=== PATIENT | male | born 1990 | race Caucasian/White ===

== ENCOUNTER 2020-01-27 09:21 | Emergency (ER) | payer OTHER, SELFPAY ==
[2020-01-27 09:22] VITALS: BP 126/54; PULSE 83; RESP 28; TEMP 37.2; O2SAT 99; BMI 28.0
--- NOTE | 2020-01-27 09:37 | CT_ITS ---
STUDY: CT BRAIN WITHOUT CONTRAST REASON FOR EXAM: Male, 29 years old. FRONTAL MURRAY, DIAPHORETIC, N/T RADIATION DOSAGE (If Supplied By Facility): CTDIvol = ( 44.99 ) mGy, DLP = ( 745.49 ) mGycm TECHNIQUE: Transaxial CT imaging of the brain was performed without administration of intravenous contrast material. Individualized dose optimization techniques were used for this CT. COMPARISON: No relevant priors. FINDINGS: Normal soft tissue structures. Normal calvarium. Normal size ventricles and extra-axial spaces for the patient''s age. Normal white matter tracts of the cerebral hemispheres. Normal basal ganglia and thalami. Normal brainstem. Normal cerebellum. There is no intracranial hemorrhage. There are no findings of an acute ischemic infarction. Normal visualized paranasal sinuses. CT/Brain/Head without Contrast IMPRESSION: Normal unenhanced CT scan of the brain. Electronically Signed: Anil Hunter, at 11:01 EDT , Service support ,
[2020-01-27] MEDS: DiphenhydrAMINE 50 MG/ML Syringe 25 MG IV (10:01)
[2020-01-27] MEDS: proCHLORPERazine 10 MG/2 ML Vial IV (10:01)
[2020-01-27] MEDS: 0.9% Normal Saline 1,000 ML 999 ML IV (10:01)
[2020-01-27 10:06] LABS: Anion Gap 10 (5-15); BUN 16 mg/dL (7-18); BUN/Creat Ratio 14.2 RATIO (10-20); Calcium,Total 8.9 mg/dL (8.5-10.1); Chloride 108 mmol/L (98-107); Creatinine, Serum 1.13 mg/dL (0.70-1.30); EST Glomerular Filtration Rate 83 mL/min (>60); Est Glom Filt Rate - Afr Amer 100 mL/min (>60); Estimated Creatinine Clearance 98.19 ml/min; Glucose 171 mg/dL (74-106); Potassium 3.5 mmol/L (3.5-5.1); Sodium Level 141 mmol/L (136-145)
--- NOTE | 2020-01-27 10:16 | ED.VIS.GEN ---
History of Present Illness Chief Complaint: Headache Narrative: 29-year-old male presents with a frontal headache and tingling in his fingers and toes. He denies recent illness. He felt completely normal upon awakening today. He worked out at home doing his usual workout, nothing unusual that he can recall. He did not take any exercise supplements and denies any recent dietary changes. He felt fine afterwards. He was then at work outside but not doing anything strenuous when he began developing a right-sided headache essentially on his right forehead. He had transient pain behind his right eye for a few seconds but never had visual changes. The pain then progressed to essentially be bifrontal on the forehead only. Nothing posteriorly. No neck pain. No sinus congestion or other upper respiratory complaints. The pain became fairly severe and he began feeling somewhat hot and had the sensation that he needed to vomit. He decided to leave work. While driving home he felt as if he was going to vomit throughout most of the time and felt flushed. When he pulled on his driveway he did vomit 1 time, mostly liquid. He never had any abdominal pain. The headache then essentially resolved but then returned upon his way to the hospital when he also noticed that his fingertips and toes felt tingly. He could still move them without trouble and did not have any weakness or true numbness, just felt tingly. He denies ever having similar symptoms in the past. He does not have a history of migraines but states that he does on occasion developed fairly significant headaches. The headache is now only approximately 2 out of 10. No eye pain or visual complaints. No weakness anywhere. His diet has been consistent for the past week and he denies any recent falls or head trauma. He does also note that he was hyperventilating secondary to the pain but did not have cough or shortness of breath. Denies recent sick contacts. He cannot recall any specific triggers for this. Light does not make it worse. Prior similar symptoms: No Recent Illness/Hospitalization: No Capacity - Capacity Assessment Tool Can the patient make a choice & communicate that choice?: Yes Past Medical History - Allergies and Home Meds Allergies/Adverse Reactions: Allergies Penicillins Allergy (Verified 01/27/20 09:25) Shortness of breath Primary Care Physician: Nohemy Bender MD [Primary Care Provider] - Prior records reviewed: Yes Past Medical History: - - Seasonal allergies Smoking Status: Never smoker Review of Systems General: Reports: Sweats. Denies: Chills, Fever Eyes: Denies: Visual changes - bilaterally, Diplopia ENT: Denies: Rhinorrhea, Sore throat Cardiovascular: Denies: Chest pain, Palpitations Respiratory: Denies: Dyspnea, Cough, Dyspnea on exertion Gastrointestinal: Reports: Nausea, Vomiting. Denies: Abdominal pain, Diarrhea, Melena, Hematochezia Genitourinary: Denies: Dysuria, Hematuria, Frequency Musculoskeletal: Denies: Back pain, Extremity Pain Skin: Denies: Rash, Wounds Neurological: Reports: Headache, Parasthesia. Denies: Weakness, Numbness Psych: Denies: Depression, Anxiety Hematologic: Denies: Easy bruising, Easy bleeding Physical Exam Vital Signs/Narrative: Vital Signs Temp Pulse Resp BP Pulse Ox 01/27/20 09:22 98.9 F 83 28 H 126/54 H 99 General: Well nourished, Well developed, No Acute Distress Head: Normocephalic, Atraumatic Eyes: Perrl, EOMI ENT: Moist mucous membranes, No rhinorrhea Neck: Supple, Nontender Cardiovascular: Regular rate, Regular rhythm, No murmurs Respiratory: No distress, CTA bilaterally, Chest nontender Abdomen: Soft, Nontender, Nondistended, Normal bowel sounds Back: Nontender, Normal Inspection Extremities: Nontender, No edema Skin: Normal color, No rash Neurological: Alert, Oriented x3, Cranial nerves II-XII grossly intact, Normal Strength, Normal Sensation Psychological: Normal affect, Normal Mood Diagnostic/Tx/Re-eval - Medical Decision Making Given IV fluids, antiemetics, and Benadryl. He was observed. His headache completely resolved. Completely normal neurologic exam. The tingling in his fingers resolved as well. He feels back to baseline. Eating and drinking without difficulty. Negative noncontrast head CT within only a few hours of symptom onset and negative CTA head and neck so I think the likelihood of a significant neurologic issue is quite low. He looks well and is comfortable going home with close follow-up. They will return here if he has recurrence of symptoms. BMP unremarkable except for slightly elevated glucose which I informed him about. ED Disposition - Plan for ED Patient: Disposition: Home or Assisted Living Diagnosis: Headache, Paresthesia, Vomiting Instructions: ED Headache Unspecified Referrals: Nohemy Bender MD [Primary Care Provider] -
--- NOTE | 2020-01-27 11:44 | CT_ITS ---
STUDY: CTA HEAD AND NECK WITH CONTRAST REASON FOR EXAM: Male, 29 years old. ACUTE NEUROLOGIC DEFICIT, FRONTAL HEADACHE, DIAPHORETIC, N/T HANDS AND FEET RADIATION DOSAGE (If Supplied By Facility): CTDIvol = ( 20.23 ) mGy, DLP = ( 792.74 ) mGycm TECHNIQUE: CT angiography was performed with a multi-detector CT scanner. Data acquisition was obtained from the skull base through the vertex following intravenous administration of IV 100mL [id number]-[id number]. MIP images were reconstructed from the axial data set. Post-processing of the angiographic images was performed, with multiplanar reformation and 3D reconstruction. Individualized dose optimization techniques were used for this CT. COMPARISON: No relevant priors. FINDINGS: Normal bilateral petrous carotid arteries. Normal right cavernous carotid artery with a normal supraclinoid bifurcation. Normal left cavernous carotid artery with a normal supraclinoid bifurcation. Normal right A1 segments of the anterior cerebral artery. Normal left A1 segments of the anterior cerebral artery. Normal intact anterior communicating artery (ACOM). Normal bilateral A2 segments of the anterior cerebral arteries. Normal right M1 and M2 segments of the middle cerebral arteries, with a normal M1 bifurcation. Normal left M1 and M2 segments of the middle cerebral arteries, with a normal M1 bifurcation. Normal right posterior communicating artery (PCOM). Normal left posterior communicating artery (PCOM). Normal bilateral vertebral arteries. Normal basilar artery with a normal basilar bifurcation. The visualized bilateral superior cerebellar (SCA) arteries are normal. Normal bilateral P1, P2 and visualized P3 segments of the posterior cerebral arteries. There is no demonstrated aneurysm of the rosebud of [place]. There is no demonstrated abnormality of the visualized brain. AORTIC ARCH: Normal visualized aortic arch. Normal origins of the brachiocephalic, left common carotid, and left subclavian arteries. RIGHT CAROTID ARTERIES: Normal right common carotid artery (CCA). Normal right common carotid bulb. Normal origin of the right internal carotid (ICA) artery without a hemodynamically significant stenosis. Normal visualized cervical portion of the right internal carotid artery. Normal origin of the right external carotid artery (ECA). LEFT CAROTID ARTERIES: Normal left common carotid artery (CCA). Normal left common carotid bulb. Normal origin of the left internal carotid (ICA) artery without a hemodynamically significant stenosis. Normal visualized cervical portion of the left internal carotid artery. Normal origin of the left external carotid artery (ECA). VERTEBRAL ARTERIES: Normal bilateral vertebral arteries. CT/CTA Head AND Neck W/ Contrast IMPRESSION: Normal CTA Head and neck with contrast. Electronically Signed: Anil Hunter, at 12:11 EDT , Service support ,
[2020-01-27] MEDS: Contrast Allergy Safety Check IV (12:37)
[2020-01-27 12:41] VITALS: PULSE 75; RESP 17; O2SAT 98
== END 2020-01-27 12:43 | disposition home or self-care (01) ==
PROVIDERS: Emergency Provider Emergency Medicine; PCP Family Medicine
DX: R51 Headache (principal); R11.10 Vomiting, unspecified; R20.2 Paresthesia of skin
CPT/HCPCS: 70450; 70496; 70498; 80048; 96361; 96374; 96375; 99283; J7030; Q9967; A4216

== ENCOUNTER → 2020-06-14 16:30 | Outpatient (CLI) | payer OTHER, SELFPAY | PROVIDERS: PCP Family Medicine; Visit Provider Family Medicine | DX: U07.1 COVID-19 (principal) | CPT/HCPCS: 87635; U0003 ==

== ENCOUNTER 2024-12-22 17:00 | Outpatient (RCR) | payer BC, SELFPAY ==
--- NOTE | 2024-12-02 19:01 | HP.PTEVAL ---
Patient's Visit Information Visit Information Visit Information: TRAV WYNN is a 34 year old M referred to Physical Therapy by Dr. Heriberto Orozco MD with a diagnosis of STRAIN OF MUSCLE FASCIA AND TENDON OF LOWER ,BACK INTIAL. Date of Evaluation: 12/02/24 Physical Therapist: Jatin Lino, PT, Cert MDT, OCS Visit Plan Frequency: 2x /Week Duration: 4 Weeks Plan: PT INTERVENTIONS DIMITRIS EX'S PROGRESSION OF FORCES ,DLS ,POSTURAL EX'S ,PATIENT EDUCATION CROSSFIT BACK CARE AND FLEXABILITY Subjective Subjective: This 34 y/o male presents to physical therapy with lumbar pain. Patient has had pain 8 weeks .[facility]Patient next day tightness. Patient location Right LS back . Seen DR x-rays - [facility] no medication recommend PT. Patient aggravating weight squat,extended driving KB swings and does crossfit. Alleviating moving ,walking ,standing using weight belt with pressure significantly less. Pain c/o more less of stiffness. No pain running ,jumping. Denies paresthesia/tingling-. Bowel/bladder-.Seen chiropractor no change and tried massage. Patient sleeping okay. Coughing/sneezing Patient condition affects QOL and function/crossfit. Patient no pain with crossfit SOCIAL: VOCATION: [employer] Pain Right Back: Pain Intensity (Out of 10): 3 Pain Intensity Range: 10 Objective Objective: POSTURE: mild forward posture GAIT: ambulated with reciprocal pattern NEURO: denies paresthesia/tingling ,reflexes L3-4 ,L4-5,L5-S1 1/3 PALPATION: tender LS FLEXABILITY: hamstrings min tight ,quads min tight LUMBAR ROM: min loss ,extension WFL ,side glide min loss MMT: quads/hams 5/5 ,hip flexion left 4-/5 ,right 5/5 ankle Special Tests L/S Slump test left side: Negative L/S Slump test right side: Negative L/S Left Straight Leg Raise: Negative L/S Right Straight Leg Raise: Negative Lumbar Standing: Flexion - Mechanical Response: No effect Lumbar Standing: Flexion - Symptoms During Testing: Increases Lumbar Standing: Flexion - Symptoms After Testing: No worse Lumbar Standing: Extension - Mechanical Response: No effect Lumbar Standing: Extension - Symptoms During Testing: Increases Lumbar Standing: Extension - Symptoms After Testing: No effect Lumbar Standing: Right Side Glides - Mechanical Response: No effect Lumbar Standing: Right Side [place] - Symptoms During Testing: No effect Lumbar Standing: Right Side [place] - Symptoms After Testing: No effect Lumbar Standing: Left Side [place] - Mechanical Response: No effect Lumbar Standing: Left Side [place] - Symptoms During Testing: No effect Lumbar Standing: Left Side [place] - Symptoms After Testing: No effect Lumbar Lying: Flexion - Mechanical Response: No effect Lumbar Lying: Flexion - Symptoms During Testing: Increases Lumbar Lying: Extension - Mechanical Response: No effect Lumbar Lying: Extension - Symptoms During Testing: Increases Lumbar Lying: Extension - Symptoms After Testing: No better Comments:: REIL with hips to left : 2x10 decreased symptoms Balance/Special Test Scores Oswestry Low Back Score: 16 Goals Goal 1:: Patient to be I with HEP Goal Time Frame: 4-6 Weeks Goal 2:: Patient posture/body mechanics 90% Goal Time Frame: 4-6 Weeks Goal 3:: Patient to improve lumbar ROM for function of recovery for lifting Goal Time Frame: 4-6 Weeks Goal 4:: Patient to back oswestry score by 5 points to improve QOL and function., Goal Time Frame: 4-6 Weeks Goal 5:: Patient to perform Crossfit w/o pain Goal Time Frame: 4-6 Weeks Rehabilitation Potential Physical Therapy Diagnosis: This patient has right lumbar possible disc possible lateral derangement with pain with certain activities lifting squatting and lifting thus benefit from skilled PT. Rehabilitation Potential: Good Anticipated Interventions TENS: Yes IF ES: Yes Cryotherapy (ice pack, ice massage): Yes Thermo therapy (hot pack): Yes Ultrasound (thermal/non thermal): Yes For the Purpose of:: To decrease pain, To increase ROM, To improve nutrient delivery to tissue, To increase oxygenation perfusion, To improve health of tissue, To decrease soft tissue restriction and To increase flexibility/ROM Text: Thank you for the opportunity to evaluate your patient. For Medicare and Medicare HMO plans, please review the plan of care and approve it. It will need to be FAXED BACK to us at [phone] for Medicare purposes. For Medicare only, by signing this I certify the plan of care. Please let me know if there are questions or concerns regarding this plan of care. Physician Signature: Date:
--- NOTE | 2025-04-18 17:22 | HP.PT.NRP ---
Patient Information Patient Information: TRAV WYNN was seen in my office for initial evaluation on 12/02/24. The following Plan of Care was established for this patient: POC Established Initial Frequency: 2x /Week Initial Duration: 4 Weeks Anticipated Interventions TENS: Yes IF ES: Yes Cryotherapy (ice pack, ice massage): Yes Thermo therapy (hot pack): Yes Ultrasound (thermal/non thermal): Yes For the Purpose of:: To decrease pain, To increase ROM, To improve nutrient delivery to tissue, To increase oxygenation perfusion, To improve health of tissue, To decrease soft tissue restriction and To increase flexibility/ROM Last Seen Last Seen: This patient was last seen in our office . Pertinent comments regarding their Physical therapy will appear below: Patient was seen for PT for lumbar pain focusing on gabriella chandler's thus d/c At this point I will be discontinuing this patient from physical therapy. I would be happy to see this patient again in the future if found appropriate by the physician. Thank you! Jatin Lino, PT, Cert MDT, OCS Balance/Gait/Functional tests Balance/Special Test Scores Oswestry Low Back Score: 16
== END 2024-12-22 19:00 | disposition home or self-care (01) ==
LOC: PT 17:00
PROVIDERS: PCP Family Medicine; Referring Provider Orthopaedic Surgery; Visit Provider Orthopaedic Surgery
DX: S39.012D Strain of muscle, fascia and tendon of lower back, subsequent encounter (principal)
CPT/HCPCS: 97110; 97161